=== PATIENT | female | born 1985 | race African-American/Black ===

== ENCOUNTER 2020-05-23 21:12 | Inpatient (IN) ==
[2020-05-23 21:49] LABS: Basophils % 0.1 % (0.0-0.8); Hematocrit 30.6 VOL% (35.7-47.0); Hemoglobin 9.3 GM/DL (12.0-16.0); Immature Granulocytes % 1.1 %; Immature Granulocytes Absolute 0.12 #; Lymphocytes # 0.9 10*3/uL (1.4-4.0); Lymphocytes % 7.8 % (21.3-54.2); Mean Corpuscular HGB Conc 30.4 GM/DL (32-36); Mean Platelet Volume 9.4 FL (9.6-12.0); Monocytes % 4.1 % (1.7-12.7); Neutrophils % 86.9 % (38.7-73.9); Platelet Count 412 T/CUMM (130-400); Red Blood Count 4.25 MC/CUMM (3.8-5.5); Red Cell Distribution Width 24.2 % (9.3-17.3); White Blood Count 11.3 T/CUMM (4-12)
[2020-05-23 22:06] LABS: Anisocytosis 1+; Hypochromasia 1+
[2020-05-23 22:07] LABS: Elliptocytes Few; Platelet Estimate Adequate; Polychromasia Few
[2020-05-23 22:10] LABS: Alanine Aminotransferase 10 U/L (13-56); Albumin 2.8 G/DL (3.4-5.0); Alkaline Phosphatase 102 U/L (45-117); Aspartate Amino Transferase 8 U/L (0-37); Bilirubin,Total < 0.39 MG/DL (0.2-1.0); Blood Urea Nitrogen 13 MG/DL (7-18); Calcium 9.1 MG/DL (8.5-10.1); Estimated Glom Filtration Rate 159 ML/MIN; Glucose 117 MG/DL (74-106); Osmolality,Calculated 279.4 MOS/KG (273-304); Total Protein 8.3 G/DL (6.4-8.3)
[2020-05-24] MEDS: LACTATED RINGERS 1,000 ML IV SCH ×2 (05:06→06:57)
[2020-05-24] MEDS ORDERED: ceFAZolin 3,000 MG in SYRINGE 1 EACH IV ONE (05:30)
[2020-05-24] MEDS ORDERED: FAMOTIDINE 20 MG/2 ML VIAL IV ONE (05:30)
[2020-05-24] MEDS ORDERED: CITRIC ACID/SODIUM CITRATE 30 ML UDCUP PO ONE (05:30)
[2020-05-24] MEDS ORDERED: miSOPROStoL 200 MCG TABLET PO PRN (06:00)
[2020-05-24] MEDS ORDERED: OXYTOCIN/LR 20 UNIT/1,000 ML BAG IV ONE ×2 (06:00→09:04)
[2020-05-24] MEDS ORDERED: CARBOPROST TROMETHAMINE 250 MCG/ML AMP IM PRN (06:00)
[2020-05-24] MEDS ORDERED: METHYLERGONOVINE 0.2 MG/1 ML AMP IM PRN (06:00)
[2020-05-24] MEDS ORDERED: BUPIVACAINE MPF 0.25% 30 ML VIAL ONE (07:00)
[2020-05-24] MEDS ORDERED: SUFentanil 50 MCG/ML AMP ONE (07:00)
[2020-05-24] MEDS ORDERED: SODIUM CHLORIDE 0.9% 1,000 ML IV PRN ×2 (07:00→19:03)
[2020-05-24] MEDS ORDERED: SUCCINYLCHOLINE 200 MG/10 ML VIAL ONE (07:13)
[2020-05-24] MEDS ORDERED: LIDOCAINE 2% 5 ML VIAL ONE (07:13)
[2020-05-24] MEDS ORDERED: propofoL 200 MG/20 ML VIAL IV ONE (07:13)
[2020-05-24] MEDS ORDERED: ROCURONIUM 50 MG/5 ML VIAL IV ONE (07:13)
[2020-05-24] MEDS ORDERED: MIDAZOLAM 2 MG/2 ML VIAL ONE (07:14)
[2020-05-24] MEDS ORDERED: MORPHINE 10 MG/10 ML VIAL ONE (07:27)
[2020-05-24] MEDS ORDERED: BUPIVACAINE SPINAL 0.75% 2 ML AMP SPINAL ONE (07:27)
[2020-05-24] MEDS ORDERED: PHENYLEPHRINE 1 MG/10 ML SYRINGE IV ONE ×2 (08:01)
[2020-05-24] MEDS ORDERED: DEXAMETHASONE 4 MG/1 ML VIAL ONE ×2 (08:03)
[2020-05-24] MEDS ORDERED: ONDANSETRON 4 MG/2 ML VIAL ONE ×2 (08:03)
[2020-05-24 08:26] LABS: Cord Arterial Blood HCO3 22.1 MMOL/L; Cord Venous Blood HCO3 24.8 MMOL/L; Cord Venous Blood PCO2 44.4 MMHG; Cord Venous Blood PO2 33.1 MMHG
[2020-05-24 08:30] LABS: Bilirubin,Urine Negative (Negative); Blood, Urine Negative (Negative); Glucose,Urine (UA) Negative (Negative); Ketones,Urine 80 mg/dL (Negative); Mucus,Urine Few /LPF (Occasional); Nitrite,Urine Negative (Negative); Protein,Urine Negative; RBC,Urine <1 /HPF (0-4); Squamous Epithelial Cell,Urine Occasional /HPF (0-10); Urine Appearance CLEAR (Clear); Urine Color Yellow (Yellow); Urine Specific Gravity 1.027 (1.001-1.035); Urine Urobilinogen < 2.0 EU/DL (0.2-1.0); WBC,Urine <1 /HPF (0-6)
[2020-05-24] MEDS ORDERED: MAGNESIUM HYDROXIDE SUSP 30 ML UDCUP PO PRN (09:04)
[2020-05-24] MEDS ORDERED: RHO(D) IMMUNE GLOBULIN 300 MCG SYRINGE IM ONE (09:04)
[2020-05-24] MEDS ORDERED: ONDANSETRON 4 MG/2 ML VIAL IV PRN (09:04)
[2020-05-24] MEDS ORDERED: ACETAMINOPHEN 325 MG TABLET PO PRN (09:04)
[2020-05-24] MEDS ORDERED: ceFAZolin 1,000 MG in SYRINGE 1 EACH IV SCH ×2 (09:30→15:30)
[2020-05-24] MEDS ORDERED: LACTATED RINGERS 1,000 ML IV SCH (09:30)
[2020-05-24] MEDS: IBUPROFEN 800 MG TABLET PO PRN (12:59)
[2020-05-24] MEDS: ceFAZolin 2,000 MG in PREMIX 1 EACH IV SCH (15:15)
[2020-05-24] MEDS ORDERED: ceFAZolin 2,000 MG in PREMIX 1 EACH IV SCH (15:30)
[2020-05-24 17:30] LABS: Basophils % 0.1 % (0.0-0.8); Hematocrit 25.2 VOL% (35.7-47.0); Hemoglobin 7.6 GM/DL (12.0-16.0); Immature Granulocytes % 0.5 %; Immature Granulocytes Absolute 0.08 #; Lymphocytes % 6.1 % (21.3-54.2); Mean Corpuscular HGB Conc 30.2 GM/DL (32-36); Mean Corpuscular Volume 73.9 FL (87-102); Mean Platelet Volume 10.5 FL (9.6-12.0); Monocytes % 4.8 % (1.7-12.7); Neutrophils % 88.5 % (38.7-73.9); Platelet Count 333 T/CUMM (130-400); Red Blood Count 3.41 MC/CUMM (3.8-5.5); Red Cell Distribution Width 24.1 % (9.3-17.3); White Blood Count 16.6 T/CUMM (4-12)
[2020-05-24] MEDS ORDERED: diphenhydrAMINE CAP 25 MG CAPSULE PO PRN (19:07)
[2020-05-24] MEDS: DOCUSATE SODIUM 100 MG CAPSULE PO SCH (20:09)
[2020-05-24] MEDS: oxyCODONE/ACETAMINOPHEN 5-325 MG TABLET PO PRN (23:30)
[2020-05-25] MEDS: ceFAZolin 2,000 MG in PREMIX 1 EACH IV SCH (01:40)
[2020-05-25 06:49] LABS: Basophils % 0.1 % (0.0-0.8); Hematocrit 24.2 VOL% (35.7-47.0); Hemoglobin 7.4 GM/DL (12.0-16.0); Immature Granulocytes % 0.6 %; Immature Granulocytes Absolute 0.08 #; Lymphocytes # 1.9 10*3/uL (1.4-4.0); Lymphocytes % 13.4 % (21.3-54.2); Mean Corpuscular HGB Conc 30.6 GM/DL (32-36); Mean Corpuscular Volume 74.5 FL (87-102); Mean Platelet Volume 10.2 FL (9.6-12.0); Monocytes % 11.3 % (1.7-12.7); Neutrophils % 74.6 % (38.7-73.9); Platelet Count 308 T/CUMM (130-400); Red Blood Count 3.25 MC/CUMM (3.8-5.5); Red Cell Distribution Width 23.7 % (9.3-17.3); White Blood Count 13.8 T/CUMM (4-12)
[2020-05-25 08:52] LABS: Hypochromasia 4+; Microcytosis 2+; Platelet Estimate Normal; Polychromasia Slight
[2020-05-25] MEDS: oxyCODONE/ACETAMINOPHEN 5-325 MG TABLET PO PRN ×2 (09:05→19:35)
[2020-05-25] MEDS: MULTIVITAMIN (PRENATAL) TABLET PO SCH (09:05)
[2020-05-25] MEDS: DOCUSATE SODIUM 100 MG CAPSULE PO SCH ×2 (09:05→19:36)
[2020-05-25] MEDS ORDERED: SODIUM CHLORIDE 0.9% 1,000 ML IV PRN (09:31)
[2020-05-25] MEDS: IRON (CARBONYL) 45 MG TABLET PO SCH ×2 (10:00→19:36)
[2020-05-25] MEDS: IBUPROFEN 800 MG TABLET PO PRN (16:30)
[2020-05-25 19:25] LABS: Hematocrit 26.4 VOL% (35.7-47.0)
[2020-05-25 19:27] LABS: Hemoglobin 8.4 GM/DL (12.0-16.0)
[2020-05-25] MEDS ORDERED: BISACODYL 10 MG SUPP RECTAL PRN (19:27)
[2020-05-25] MEDS: SIMETHICONE CHEW 80 MG TABLET PO PRN (19:36)
[2020-05-26] MEDS: DOCUSATE SODIUM 100 MG CAPSULE PO SCH ×3 (00:28→20:39)
[2020-05-26] MEDS: IRON (CARBONYL) 45 MG TABLET PO SCH ×3 (00:29→20:39)
[2020-05-26] MEDS: oxyCODONE/ACETAMINOPHEN 5-325 MG TABLET PO PRN ×3 (06:50→20:53)
[2020-05-26] MEDS: MULTIVITAMIN (PRENATAL) TABLET PO SCH (08:56)
[2020-05-26] MEDS: IBUPROFEN 800 MG TABLET PO PRN (14:55)
[2020-05-26] MEDS: SIMETHICONE CHEW 80 MG TABLET PO PRN (20:39)
[2020-05-27] MEDS: oxyCODONE/ACETAMINOPHEN 5-325 MG TABLET PO PRN (03:51)
[2020-05-27] MEDS: SIMETHICONE CHEW 80 MG TABLET PO PRN (03:51)
[2020-05-27] MEDS: IBUPROFEN 800 MG TABLET PO PRN (06:11)
[2020-05-27 07:11] VITALS: BP 126/77
[2020-05-27] MEDS: DOCUSATE SODIUM 100 MG CAPSULE PO SCH (08:51)
[2020-05-27] MEDS: IRON (CARBONYL) 45 MG TABLET PO SCH (08:51)
[2020-05-27] MEDS: MULTIVITAMIN (PRENATAL) TABLET PO SCH (08:51)
== END 2020-05-27 15:10 | disposition home or self-care (01) | DRG 787 ==
LOC: N.LDOUT 21:12 → N.LD 21:15 → N.LDOUT 05-24 07:15 → N.LD 05-24 07:27 → N.OB 05-24 13:16
PROVIDERS: ADMIT Obstetrics & Gynecology; ATTEND Obstetrics & Gynecology
PROC: LDCSECT (ICD-10-PCS; 2020-05-24 07:30)